=== PATIENT | female | born 1995 | race Caucasian/White ===

== ENCOUNTER → 2016-09-23 | Day surgery (SDC) | payer OTHER ==
[2016-09-18 10:27] LABS: BASO % 0.7 % (0.0-1.0); EOS # 0.3 10*3/uL (0.0-0.4); EOS % 5.8 % (1.0-4.0); HEMATOCRIT 44.8 % (37.0-47.0); HEMOGLOBIN 14.9 g/dl (12.0-16.0); LYMPH # 1.8 10*3/uL (1.3-4.4); LYMPH % 30.8 % (27.0-41.0); MEAN CELL VOLUME 88.4 fl (81.0-99.0); MEAN CORPUSCULAR HGB 29.4 pg (27.0-31.0); MEAN CORPUSCULAR HGB CONC 33.3 g/dl (33.0-37.0); MEAN PLATELET VOLUME 10.4 fl (9.6-12.3); MONO # 0.3 10*3/uL (0.1-1.0); MONO % 5.8 % (3.0-9.0); NEUT # 3.3 10*3/uL (2.3-7.9); NEUT % 56.7 % (47.0-73.0); PLATELET COUNT AUTOMATED 188 10*3/uL (130-400); RED BLOOD COUNT 5.07 10*6/uL (4.10-5.10); RED CELL DISTRI WIDTH 12.7 % (0-14.5); WHITE BLOOD COUNT 5.8 10*3/uL (4.8-10.8)
[~2016-09-23] VITALS: Ht 152.4 cm; Wt 77.1 kg
[2016-09-23] VITALS (8 sets, daily range): BP systolic 107–129; BP diastolic 50–69
[~2016-09-23] MED LIST: BACTRIM DS 8001 TA1 PO; CATAFLAM50 MG PO; CYCLOBENZAPRINE5 M3 PO; DOXYCYCLINE100 M2 PO; IBUPROFEN600 MG PO; MOTRIN800 MG PO; Motrin,Rufen800 MG PO; NKHM; PNV-SELECT1 TAB PO; PRENATAL1 TA3 PO; PRENATAL1 TA5 PO; TRAMADOL HCL50 MG PO; ZITHROMAX Z PA250 MG PO; ZOFRAN4 MG; ZYRTEC10 M2 PO
--- NOTE | ~2016-09-23 | O ---
[place], [place] OPERATIVE NOTE NAME: [id number] UNIT #: [id number] ROOM: DOCTOR: HANNAH LOBO MD BIRTHDATE: [birth year] DOS: 09/23/2016 PREOPERATIVE DIAGNOSIS: Desires fertility termination and IUD removal. POSTOPERATIVE DIAGNOSIS: Desires fertility termination and IUD removal. OPERATIONS: Bilateral salpingectomy and Mirena IUD removal. SURGEON: Dr. Lobo and Dr. Cotto. ANESTHESIA: General. ESTIMATED BLOOD LOSS: Minimal. REPLACEMENTS: IV fluids and Toradol. COMPLICATIONS: There were no complications. CONDITION: The patient's condition to recovery stable. OPERATIVE SUMMARY: The patient was taken to the operating room in supine position, general anesthesia, endotracheal intubation, lithotomy position, prepped and draped in routine manner. The bladder was straight drained with small amount of clear urine. The cervix was grasped using a packing forceps. The IUD was removed without complication and identified by all operating room personnel in attendance. This was then disposed off. Cervical manipulator was then placed and affixed to the tenaculum. Infraumbilical suprapubic and right lower quadrant incisions were then made under direct visualization through the infraumbilical incision, a 5 mm trocar sleeve and laparoscope were placed. CO2 insufflation then occurred followed by placement of an 8 mm trocar and sleeve through the suprapubic incision and a 5 mm trocar and sleeve through the right lower quadrant incision. Systematic examination of the pelvis revealed the uterus to be normal in size, configuration, and mobility. The anterior and posterior cul-de-sacs were normal. All supporting structures were normal bilaterally. Tubes and ovaries were normal. There were some paracecal adhesions, although we did not have a history of appendectomy, we certainly did not see any evidence of an appendix, only these adhesions. Once that was noted we had noted the liver edge and gallbladder to be grossly within normal limits. There were no upper abdominal adhesions or other gross atypicalities. Having completed the survey we then introduced a LigaSure through the right lower quadrant port and using the LigaSure with successive bites. We excised both fallopian tubes. Good hemostasis was noted along our excision sites bilaterally, and there was no evidence of ovarian blood supply compromise. Once this was completed, we removed the suprapubic and right lower quadrant trocar sleeves and instrumentation. Again, CO2 was allowed to escape. We noted no evidence of bleeding or other atypicalities from either of our operative sites or the trocar sites. We then removed the infraumbilical trocar sleeve and laparoscope. We closed all incisions with 3-0 Monocryl suture in subcuticular manner. Steri-Strips were placed and dressings were placed. Instrumentation was removed from the vagina and cervix and noting good hemostasis. The patient [place], [place] OPERATIVE NOTE NAME: BENJAMIN GARZON UNIT #: [id number] ROOM: DOCTOR: HANNAH LOBO MD BIRTHDATE: [birth year] was cleaned off, taken out of lithotomy position, awakened, extubated, and transferred to recovery in satisfactory condition, stable vital signs, good hemostasis, stable sponge and instrument count, and as I said, the urine had been clear when we catheterized her at beginning of the case. HANNAH LOBO MD CM:OPRECORD:OPERATIVE NOTE [id number] HANNAH LOBO MD 09/23/16 0858 interface
--- NOTE | ~2016-09-23 | WRIGHTHP ---
[place], [place] PATIENT HISTORY AND PHYSICAL EXAM NAME: [facility]ON [facility] [id number] UNIT #: [id number] ROOM: DOCTOR: HANNAH CRUM MD BIRTHDATE: [birth year] DOS: 09/23/2016 HISTORY OF PRESENT ILLNESS: This patient is a very pleasant 21-year-old white female, 2, para 2, who has had an IUD in place since approximately 2013. The patient presented on 08/19/2016 with a vaginal discharge and burning, but also desiring tubal ligation. She wants the IUD out. The IUD strings are not visible, but she has had an ultrasound several months prior to the visit confirming the proper location. The patient also had a sexual encounter and was concerned about STDs and testing did in fact demonstrate positive chlamydia, which has been treated and proof of cure will be forthcoming. The patient and I had a long talk about her age, her tubal ligation, the permanency of such and certainly other forms of control besides the Mirena, but the patient was quite certain that she did not want any further pregnancies and did not want to become ever further . We reviewed the risks and benefits, the indications, potential complications, alternatives, and permanency of the laparoscopic, either tubal banding or bilateral salpingectomy. She did state understanding to the information provided and signed a consent. We did have to wait for the 30-day period of time per her insurance. PAST MEDICAL HISTORY: Reveals her to have had some lower back pain in the past, but she is stable now. SOCIAL HISTORY: She smokes about a half pack of cigarettes per day, does not drink, has had 2 pregnancies and 2 vaginal deliveries. Had a normal Pap smear recently. ALLERGIES: SHE HAS ALLERGIES TO PENICILLIN ONLY. MEDICATIONS: She also is using no other medications other than the complete Zithromax for recent chlamydial infection. REVIEW OF SYSTEMS: Otherwise is stable. FAMILY HISTORY: Reveals maternal grandfather with gastric CA. PHYSICAL EXAMINATION: GENERAL: Pleasant white female. She is 5 feet 4 inches, 170 pounds, BMI is 29.2. VITAL SIGNS: Her blood pressure is 127/76. HEENT: Stable. NECK: Stable. LUNGS: Stable. CARDIAC: Stable. BREASTS: Stable. ABDOMEN: Normal. EXTREMITIES: Grossly intact. NEUROLOGIC: Grossly intact. EXTERNAL GENITALIA: Vagina, cervix normal except for the aforementioned discharge. Uterus is anteverted and anteflexed, normal size, configuration, nontender, and mobile. Adnexa were normal to palpation. [place], [place] PATIENT HISTORY AND PHYSICAL EXAM NAME: BENJAMIN GARZON UNIT #: [id number] ROOM: DOCTOR: HANNAH CRUM MD BIRTHDATE: [birth year] RECTAL: Deferred. ASSESSMENT: A patient who desires fertility termination. PLAN: On 09/23/2016, the patient will undergo laparoscopic either bilateral tubal banding or bilateral salpingectomy. ADDENDUM At the time we do the laparoscopic tubal ligation of whichever form we have mentioned, we will also remove her Mirena IUD. HANNAH CRUM MD CM:HISPHYS:PATIENT HISTORY AND PHYSICAL EXAMINATION [id number] HANNAH CRUM MD 09/18/16 1146 interface
== END | disposition home or self-care (01) ==
LOC: SDC 09-18 09:30
PROVIDERS: Obstetrics & Gynecology
DX: Z30.2 Encounter for sterilization (principal); N83.8 Other noninflammatory disorders of ovary, fallopian tube and broad ligament; Z30.432 Encounter for removal of intrauterine contraceptive device; F41.9 Anxiety disorder, unspecified; F32.9 Major depressive disorder, single episode, unspecified; F17.210 Nicotine dependence, cigarettes, uncomplicated; Z83.3 Family history of diabetes mellitus; Z80.0 Family history of malignant neoplasm of digestive organs

== ENCOUNTER 2018-04-25 03:31 | Emergency (ER) | payer OTHER ==
[~2018-04-25] VITALS: Ht 144.7 cm; Wt 63.5 kg
[2018-04-25] MEDS ORDERED: IBU800 MG PO (04:44)
== END 2018-04-25 04:42 | disposition home or self-care (01) ==
LOC: ED 03:31
DX: S00.12XA Contusion of left eyelid and periocular area, initial encounter (principal); S00.81XA Abrasion of other part of head, initial encounter; S00.01XA Abrasion of scalp, initial encounter; Z88.0 Allergy status to penicillin; Y04.2XXA Assault by strike against or bumped into by another person, initial encounter; Y93.84 Activity, sleeping; Y92.098 Other place in other non-institutional residence as the place of occurrence of the external cause; Y99.8 Other external cause status